=== PATIENT | male | born 1970 | race Caucasian/White ===

== ENCOUNTER 2023-09-02 10:18 | Emergency (ER) | payer OTHER ==
[2023-09-02 10:23] VITALS: BMI 27.4
[2023-09-02] MEDS ORDERED: ACETAMINOPHEN INJECTION 100 ML IVPB ONE (10:56)
[2023-09-02] MEDS: ACETAMINOPHEN 1000 MG/100 ML BAG IVPB ONE (11:17)
[2023-09-02 11:37] LABS: BASO % 0.7 % (0-2.0); EOS % 0.7 % (0-4.5); HEMATOCRIT 45.3 % (35.4-49); HEMOGLOBIN 15.1 GM/dL (11.7-16.9); MCH 28.6 pg (25.7-33.7); MCHC 33.4 g/dl (32.0-35.9); MEAN CELL VOLUME 85.7 fl (80-96); MEAN PLT VOLUME 9.3 fl (7.5-11.1); MONO % 5.5 % (3.8-10.2); NEUT % 66.1 % (42.8-82.8); PLATELET COUNT 249 10^3/uL (134-434); RBC 5.28 M/mm3 (4.00-5.60); RDW 14.1 % (11.9-15.9)
[2023-09-02 11:45] LABS: INR 0.92 (0.83-1.09); PROTHROMBIN TIME (PATIENT) 10.7 SEC (9.7-13.0)
[2023-09-02 11:47] LABS: ACTIVATED PTT 24.1 SECONDS (25.2-36.5)
[2023-09-02 12:15] LABS: POTASSIUM 5.7 mmol/L (3.5-5.1)
[2023-09-02 12:17] LABS: CALCIUM 9.7 mg/dL (8.5-10.1)
[2023-09-02 12:18] LABS: ALBUMIN 4.1 g/dl (3.4-5.0); BLOOD UREA NITROGEN 12.9 mg/dL (7-18)
[2023-09-02 12:23] LABS: BILIRUBIN,TOTAL 0.9 mg/dL (0.2-1); TOT PROT 7.9 g/dl (6.4-8.2)
[2023-09-02 13:58] LABS: CALCIUM 9.9 mg/dL (8.5-10.1)
[2023-09-02 13:59] LABS: BLOOD UREA NITROGEN 13.4 mg/dL (7-18)
[2023-09-02 14:02] LABS: CREATININE 0.8 mg/dL (0.55-1.3)
[2023-09-02 14:48] VITALS: BP 135/83; PULSE 76; RESP 20; TEMP 98.5
== END 2023-09-02 14:51 | disposition home or self-care (01) ==
LOC: JER 10:18
PROC: 3E033NZ Introduction of Analgesics, Hypnotics, Sedatives into Peripheral Vein, Percutaneous Approach (ICD-10-PCS; principal; 2023-09-02)
DX: R07.89 Other chest pain (principal); R53.83 Other fatigue
CPT/HCPCS: 36415; 71045-TC-FY; 71275-TC; 80048; 80053; 84484; 85025; 85379; 85610; 85730; 93005; 93010; 99285-25; J0131; Q9967

== ENCOUNTER 2023-12-11 23:59 | Inpatient (IN) | payer OTHER ==
[2023-12-12 00:23] VITALS: RESP 18; BMI 25.6
[2023-12-12 02:30] LABS: BASO % 0.4 % (0-2.0); EOS % 0.7 % (0-4.5); HEMATOCRIT 38.9 % (35.4-49); HEMOGLOBIN 13.4 GM/dL (11.7-16.9); LYMPH % 24.5 % (8-40); MCH 29.5 pg (25.7-33.7); MCHC 34.3 g/dl (32.0-35.9); MEAN CELL VOLUME 85.9 fl (80-96); MEAN PLT VOLUME 7.9 fl (7.5-11.1); MONO % 5.4 % (3.8-10.2); PLATELET COUNT 186 10^3/uL (134-434); RBC 4.53 M/mm3 (4.00-5.60); RDW 14.4 % (11.9-15.9); WHITE BLOOD COUNT 10.2 K/mm3 (4.0-10.0)
[2023-12-12 02:48] LABS: POTASSIUM 4.1 mmol/L (3.5-5.1)
[2023-12-12 02:49] LABS: INR 0.97 (0.83-1.09)
[2023-12-12 02:51] LABS: ACTIVATED PTT 34.8 SECONDS (25.2-36.5); BLOOD UREA NITROGEN 24.1 mg/dL (7-18)
[2023-12-12 02:54] LABS: CREATININE 0.9 mg/dL (0.55-1.3)
[2023-12-12 02:55] LABS: BILIRUBIN,TOTAL 1.1 mg/dL (0.2-1); TOT PROT 7.1 g/dl (6.4-8.2)
[2023-12-12 04:42] LABS: EPI CELLS 23 /uL (0-25.1); HYALINE CASTS 29 /uL (0-3.1); URINE APPEARANCE TURBID; URINE BACTERIA 0 /uL (0-1359); URINE BILIRUBIN 1+ (NEGATIVE); URINE COLOR RED; URINE GLUCOSE (UA) NEGATIVE (NEGATIVE); URINE KETONE NEGATIVE (NEGATIVE); URINE LEUK ESTERASE 2+ (NEGATIVE); URINE NITRITE NEGATIVE (NEGATIVE); URINE PROTEIN 2+ (NEGATIVE); URINE RBC 36017 /uL (0-23.9); URINE UROBILINOGEN 0.2 mg/dL (0.2-1.0); URINE WBC 37 /uL (0-25.8)
[2023-12-12 06:40] LABS: BASO % 0.3 % (0-2.0); EOS % 0.3 % (0-4.5); HEMATOCRIT 37.2 % (35.4-49); HEMOGLOBIN 12.7 GM/dL (11.7-16.9); LYMPH % 18.2 % (8-40); MCH 29.3 pg (25.7-33.7); MCHC 34.1 g/dl (32.0-35.9); MEAN CELL VOLUME 85.8 fl (80-96); MEAN PLT VOLUME 8.5 fl (7.5-11.1); MONO % 4.4 % (3.8-10.2); NEUT % 76.8 % (42.8-82.8); PLATELET COUNT 180 10^3/uL (134-434); RBC 4.33 M/mm3 (4.00-5.60); RDW 14.3 % (11.9-15.9); WHITE BLOOD COUNT 12.2 K/mm3 (4.0-10.0)
[2023-12-12 07:02] LABS: POTASSIUM 4.2 mmol/L (3.5-5.1)
[2023-12-12 07:06] LABS: ALBUMIN 3.9 g/dl (3.4-5.0); BLOOD UREA NITROGEN 24.2 mg/dL (7-18); CALCIUM 8.9 mg/dL (8.5-10.1); MAGNESIUM 2.2 mg/dL (1.8-2.4)
[2023-12-12 07:09] LABS: CREATININE 0.8 mg/dL (0.55-1.3)
[2023-12-12 07:10] LABS: PHOSPHOROUS 2.9 mg/dL (2.5-4.9)
[2023-12-12 07:11] LABS: BILIRUBIN,TOTAL 1.3 mg/dL (0.2-1); TOT PROT 6.9 g/dl (6.4-8.2)
[2023-12-12 09:24] VITALS: BP 124/85; PULSE 101; TEMP 97.6
[2023-12-12] MEDS: PANTOPRAZOLE 20 MG TABLET PO SCH (09:25)
[2023-12-12] MEDS: CLARITHROMYCIN 500 MG TABLET (UD) PO SCH (09:25)
[2023-12-12] MEDS: AMOXICILLIN 500 MG CAPSULE (FP) PO SCH (09:25)
[2023-12-12] MEDS ORDERED: ATORVASTATIN CA 80 MG TABLET (FP) PO SCH (22:00)
== END 2023-12-12 12:02 | disposition home or self-care (01) | DRG 921 ==
LOC: JER 23:59 → JERBED 12-12 04:26 → OBSVTOIN 12-12 04:38 → J6S 12-12 07:55
PROVIDERS: ADMIT Internal Medicine; ATTEND Internal Medicine
DX: N99.820 Postprocedural hemorrhage of a genitourinary system organ or structure following a genitourinary system procedure (principal); Y83.9 Surgical procedure, unspecified as the cause of abnormal reaction of the patient, or of later complication, without mention of misadventure at the time of the procedure; E78.5 Hyperlipidemia, unspecified
CPT/HCPCS: 36415; 80053; 81003; 82272; 83735; 84100; 85025; 85610; 85730; 86850; 86900; 86901; 87086; 93005; 93010; 99285-25; G0378